=== PATIENT | male | born 1980 | race Caucasian/White ===

== ENCOUNTER 2019-03-02 21:23 | Emergency (ER) | payer OTHER, SELFPAY ==
[2019-03-02 21:30] VITALS: BP 117/79; PULSE 72; RESP 18; TEMP 36.6; O2SAT 98
--- NOTE | 2019-03-02 21:34 | DI.RAD.S_ITS ---
PROCEDURE: XR ANKLE RT MIN 3V INDICATIONS: twisted ankle TECHNIQUE: 3 views of the ankle were acquired. COMPARISON: None. FINDINGS: Bones: No fractures or dislocations. Ankle mortise is normally aligned. No suspicious bony lesions. Soft tissues: Swelling over the lateral malleolus. No tibiotalar joint effusion. Achilles tendon appears normal. IMPRESSION: No fracture or dislocation. Dictated by: Gorge Martinez M.D. on 03/03/2019 at 7:27 Approved by: Gorge Martinez M.D. on 03/03/2019 at 7:29
--- NOTE | 2019-03-02 22:02 | ED_ITS ---
HPI - Extremity Injury (Lower) General Chief Complaint: Extremity Injury, Lower Stated Complaint: RIGHT ANKLE INJURY Time Seen by Provider: 03/02/19 21:42 Source: patient Mode of arrival: ambulatory Limitations: no limitations History of Present Illness HPI Narrative: 39-year-old male nonsmoker with benign medical history presents with a friend in the chief complaint of a right ankle injury suffered prior to arrival. He was at a local [facility] [address] a an inverted his right ankle while walking on uneven ground. He complains to have worsening pain with ambulation and improvement with rest. No numbness, tingling or weakness. No knee or hip injury. He denies any significant history of ankle trouble. MD complaint: ankle injury Onset (ago): hour(s) Type of Injury: inversion Place: street/outdoors Severity: moderate Relieving factors: rest Exacerbating factors: weight bearing, movement and palpation Context: walking Associated symptoms: snap/pop sensation and swelling Other symptoms: none Treatments prior to arrival: cold therapy Related Data Allergies Allergy/AdvReac Type Severity Reaction Status Date / Time No Known Drug Allergies Allergy Verified 03/02/19 21:38 Review of Systems Constitutional Denies chills, Denies fever(s), Denies lethargy and Denies weakness Eyes Denies change in vision, Denies eye discharge, Denies irritation and Denies loss of vision ENT Ears, Nose, Mouth, and Throat: Denies change in voice, Denies neck pain and Denies sore throat Cardiovascular Denies chest pain, Denies irregular heart rhythm, Denies lightheadedness, Denies palpitations, Denies dyspnea, Denies dyspnea on exertion and Denies orthopnea Respiratory Denies cough, Denies dyspnea, Denies dyspnea on exertion and Denies wheezing Gastrointestinal Gastrointestinal: Denies abdominal pain, Denies change in bowel habits, Denies diarrhea, Denies nausea and Denies vomiting Genitourinary Denies hematuria, Denies flank pain, Denies urinary incontinence and Denies urinary urgency Musculoskeletal Reports arthralgias, Reports joint swelling, Reports limited range of motion and Denies neck pain Integumentary/Breasts Denies pruritus, Denies erythema, Denies rash and Denies wounds Neurologic Denies confusion, Denies loss of vision and Denies weakness Psychiatric Denies anxiety, Denies confusion, Denies depression, Denies homicidal ideation and Denies suicidal ideation Endocrine Denies palpitations Hematologic/Lymphatic Denies easy bruising Allergic/Immunologic Denies wheezing PFSH Social History Smoking Status: Never smoker Social History Smoking Status: Never smoker Exam Narrative Exam Narrative: GEN: AOx3 and in mild distress, rubbing his right ankle EYES: Pupils are equal, round, and reactive to light and accommodation. Extraoccular muscles are intact bilaterally. There is no subconjunctival hemorrhage or exudate. CHEST: Lungs are clear to auscultation bilaterally and free of wheezes, rales, or rhonchi. Heart rate is regular rhythm, there are no murmurs, clicks, rubs, or gallops. There is no chest wall tenderness. ABD: Abdomen is soft and nontender. There is no guarding or rebound. Bowel sounds are normal in all 4 quadrants. There is no mass or organomegaly. EXT: Full but painful range of motion of the right ankle. Swelling inferior to the lateral malleolus, no ligamentous instability. Close, isolated and neurovascularly intact. SKIN: Warm, pink, and dry. No erythema or rash Initial Vital Signs Initial Vital Signs: Vital Signs Temperature 98 F 03/02/19 21:30 Pulse Rate 72 03/02/19 21:30 Respiratory Rate 18 03/02/19 21:30 Blood Pressure 117/79 03/02/19 21:30 Pulse Oximetry 98 03/02/19 21:30 Course Orders Ordered: ED Orders 03/02/19 21:34 XR ankle RT min 3V Stat Vital Signs - 8 hr 03/02/19 21:30 Temperature 98 F Pulse Rate 72 Respiratory Rate 18 Blood Pressure 117/79 Pulse Oximetry 98 MDM - Extremity Injury (Lower) Imaging Data Ankle Xray: Attestation: I personally reviewed and interpreted this imaging study as follows: My impression: No obvious bony abnormality Discharge Plan Departure Patient Disposition: Home Clinical Impression: Ankle sprain and strain Discharge Date/Time: 03/02/19 22:08 Interventions: ED Discharge Assessment Last Done: 03/02/19 22:07 Instructions: Ankle Sprain Activity Restrictions/Additional Instructions: *You have been diagnosed with [acute right anterior talofibular strain] *What to do: *Take medications as directed: tylenol and motrin for pain and swelling *Follow up with your primary care provider in 2-3 days, call for an appointment. Let them know you were seen in the Emergency Department and that we ask that you be seen in follow up *Return to ER if you should have any new, worsening or concerning symptoms] Referrals: [facility] [Outside] Fernando Mensah MD [Physician] -
== END 2019-03-02 22:08 | disposition home or self-care (01) ==
PROVIDERS: Emergency Provider Emergency Medicine
DX: S93.401A Sprain of unspecified ligament of right ankle, initial encounter (principal); X50.9XXA Other and unspecified overexertion or strenuous movements or postures, initial encounter; Y93.01 Activity, walking, marching and hiking
CPT/HCPCS: 73610; 99282; 99283

== ENCOUNTER 2021-12-01 15:03 | Emergency (ER) | payer SELFPAY ==
[2021-12-01 15:22] VITALS: BP 139/81; PULSE 72; RESP 18; TEMP 37.1; O2SAT 98; BMI 27.7
[2021-12-01 17:45] VITALS: BP 131/76; PULSE 69; RESP 16; O2SAT 99
--- NOTE | 2021-12-01 18:41 | ED_ITS ---
HPI - Extremity Injury (Lower) <AFIA Kirby - Last Filed: 12/01/21 21:22> General Chief Complaint: Extremity Injury, Lower Stated Complaint: Right calf skateboard injury Time Seen by Provider: 12/01/21 17:38 Source: patient Mode of arrival: Family Vehicle History of Present Illness HPI Narrative: This is a 41-year-old male who presents to the emergency department with left calf pain which occurred while he was on a skateboard when he suddenly felt like he was struck in the back of the calf and felt pain and is unable to flex his left calf muscle. He states that bearing weight is almost intolerable, he cannot ambulate normally, denies any sensation changes in his foot, denies any pain to his Achilles, denies any ankle pain, knee pain, or wound. He states that he feels the pain on the medial aspect of his left posterior gastrocnemius muscle, he states that it feels swollen to touch. Related Data Previous Rx's Medication Instructions Recorded diclofenac sodium 1 % topical gel 2 g TOPICAL QID PRN #100 g 12/01/21 (Voltaren Arthritis Pain) lidocaine 5 % topical patch 1 patch TOPICAL DAILY #15 ea 12/01/21 Allergies Allergy/AdvReac Type Severity Reaction Status Date / Time No Known Drug Allergies Allergy Verified 03/02/19 21:38 Review of Systems <AFIA Kirby - Last Filed: 12/01/21 21:22> Review of Systems Narrative: General: denies fever, chills, malaise, sweats, fatigue Head/Neck: denies headache, neck pain, dizziness Eyes: denies visual changes, eye pain Cardio: denies chest pain, palpitations, edema Respiratory: denies dyspnea, cough GI: denies abdominal pain, nausea, vomiting, or diarrhea : denies dysuria, hematuria, urinary retention, frequency or incontinence MSK: denies joint pain, endorses medial gastrocnemius pain to palpation and w ithbearing weight Skin: denies rash, itching, skin lesions or other Neuro: denies numbness, tingling Patient History <AFIA Kirby - Last Filed: 12/01/21 21:22> Social History Smoking Status: Current some day smoker Smoking Status: Current some day smoker tobacco type: cigars alcohol intake frequency: a few times a week Alcohol type: beer Substance Use Type: does not use Exam <AFIA Kirby - Last Filed: 12/01/21 21:22> Narrative Exam Narrative: Independently reviewed vitals signs and nursing notes. General: cooperative, comfortable, in no acute distress, well developed and well groomed Head: atraumatic, symmetrical facial expressions Neck: supple, atraumatic, without lymphadenopathy. Eyes: pupils equal round and reactive, EOMI, conjunctiva normal Nose: nares patent, no rhinorrhea Mouth/Throat: uvula midline, moist mucus membranes Cardiovascular: regular rate and rhythm, no peripheral edema, warm extremities Respiratory: normal effort, able to speak in complete sentences, no audible wheezing, stridor, or rales. No retractions or tachypnea. GI: abdomen soft, nontender to palpation, nondistended, no masses, no exquisite tenderness with exam, without guarding or rebound. MSK: moves all extremities, neurovascularly intact, right gastrocnemius tenderness with palpation on the medial distal aspect, no tenderness over left knee LCL, MCL, full stop with Samantha test anteriorly and posteriorly, calves are equal in size bilaterally or close to, tenderness on the medial aspect to palpation. Patient is not able to flex his gastrocnemius on the left, difficulty with dorsiflexion but able to slightly dorsiflex and dorsi extension is without deficit, no tenderness over Achilles tendon Neuro: normal speech and cognition, A&O x3, normal tone Psych: mental status is grossly normal, congruent mood, normal affect, pleasant and cooperative Initial Vital Signs Initial Vital Signs: Vital Signs Temperature 98.7 F 12/01/21 15:22 Pulse Rate 72 12/01/21 15:22 Respiratory Rate 18 12/01/21 15:22 Blood Pressure 139/81 12/01/21 15:22 Pulse Oximetry 98 12/01/21 15:22 <Caesar Uriostegui DO - Last Filed: 12/01/21 21:45> Initial Vital Signs Initial Vital Signs: Vital Signs Temperature 98.7 F 12/01/21 15:22 Pulse Rate 72 12/01/21 15:22 Respiratory Rate 18 12/01/21 15:22 Blood Pressure 139/81 12/01/21 15:22 Pulse Oximetry 98 12/01/21 15:22 Course <AFIA Kirby - Last Filed: 12/01/21 21:22> Orders Ordered: Discontinued Medications Acetaminophen (Acetaminophen 325 Mg Tablet) 975 mg PO NOW ONE Stop: 12/01/21 18:43 Last Admin: 12/01/21 18:49 Dose: Not Given Documented by: ATAYLOR Ketorolac Tromethamine (Ketorolac 10 Mg Tablet) 10 mg PO NOW ONE Stop: 12/01/21 18:43 Last Admin: 12/01/21 18:49 Dose: Not Given Documented by: ATAYLOR Vital Signs Vital signs: Vital Signs - 8 hr 12/01/21 15:22 12/01/21 17:45 Temperature 98.7 F Pulse Rate 72 69 Respiratory Rate 18 16 Blood Pressure 139/81 131/76 Pulse Oximetry 98 99 <Caesar Uriostegui DO - Last Filed: 12/01/21 21:45> Orders Ordered: Discontinued Medications Acetaminophen (Acetaminophen 325 Mg Tablet) 975 mg PO NOW ONE Stop: 12/01/21 18:43 Last Admin: 12/01/21 18:49 Dose: Not Given Documented by: ATAYLOR Ketorolac Tromethamine (Ketorolac 10 Mg Tablet) 10 mg PO NOW ONE Stop: 12/01/21 18:43 Last Admin: 12/01/21 18:49 Dose: Not Given Documented by: ATAYLOR Vital Signs Vital signs: Vital Signs - 8 hr 12/01/21 15:22 12/01/21 17:45 Temperature 98.7 F Pulse Rate 72 69 Respiratory Rate 18 16 Blood Pressure 139/81 131/76 Pulse Oximetry 98 99 MDM - Extremity Injury (Lower) <AFIA Kirby - Last Filed: 12/01/21 21:22> Imaging Data Extremity x-ray #1: Radiologist's Impression: PROCEDURE:? XR ANKLE RT MIN 3V ? INDICATIONS:? twisted ankle ? TECHNIQUE:? 3 views of the ankle were acquired.? ? COMPARISON:? None. ? FINDINGS:? ? Bones:? No fractures or dislocations.? Ankle mortise is normally aligned.? No suspicious bony lesions.? ? Soft tissues:? Swelling over the lateral malleolus. No tibiotalar joint effusion.? Achilles tendon appears normal.? ? IMPRESSION: No fracture or dislocation. ? ? ? Dictated by: Gorge Martinez M.D. on 03/03/2019 at 7:27 ? ? Approved by: Gorge Martinez M.D. on 03/03/2019 at 7:29 ? ?? [facility] Narrative Medical decision making narrative: This is a 41-year-old male who presents to the emergency department with spontaneous pain in his right gastrocnemius while he was riding a skateboard earlier today and now is unable to flex his gastrocnemius or dorsiflex his foot. He has tenderness to the medial gastrocnemius and my suspicion is that he has a gastrocnemius tear. Patient was educated at length about this as he does not have a primary care provider, states he does not have a job, or any money, or any follow-up. Recommend compression sleeve/Kyrie bandage, ibuprofen, Tylenol, Voltaren. Patient denies wanting any pain medication for this. Patient was given crutches, this was helpful, he was reassured that this start to improve over the next week, it may take approximately 3 weeks before he can start walking normally, he does not have any tenderness over his Achilles tendon, but he does have difficulty with dorsiflexion, was unable to flex his gastrocnemius muscle. Patient was encouraged to try the supportive therapies including crutches, compression, ice, [id number] medications and if still having difficulty, to follow up with [facility] after [address] patient not [address] if he is unable to safely lift his foot off of gas and get it on the brake. Patient was anxious and seemingly overwhelmed, he was reassured, he called again later and we spoke about how to get through this week without being able to drive. He felt much better after he was reassured, and understands with the red flag signs are. He will return to the emergency department if he has any worsening of his symptoms. Patient is appropriate and amenable to discharge home. Vital signs are stable on repeat examination is unremarkable. Patient has been informed of results. Patient has been given strict return to ER precautions for any new or worsening symptoms. Patient understands to follow up closely with outpatient providers as instructed. Patient understands plan and agrees to discharge home. All questions and concerns answered at this time. Discharge Plan Departure Patient Disposition: Home Clinical Impression: Gastrocnemius tear Qualifiers: Encounter type: initial encounter Laterality: left Qualified Code(s): S86.112A - Strain of other muscle(s) and tendon(s) of posterior muscle group at lower leg level, left leg, initial encounter Instructions: Calf Muscle Strain Activity Restrictions/Additional Instructions: *You have been diagnosed with a gastrocneumius tear on the left. Please use crutches for 1 week with icing, compression, and see if you are able to walk at that point. If you are unable to walk at that point, please follow-up with Orthopedics, call and make an appointment for evaluation. If it is improved but still painful to walk on, continue to wean herself off of crutches. Please apply Voltaren gel up to 3 or 4 times daily as needed, this can be helpful for pain. You may use a heel lift in her shoe which might offer some relief. Stretching exercises do not aid healing and should be avoided while this is healing. It can exacerbate the muscle tear from the injury. Please take ibuprofen or Tylenol for pain, stay hydrated, this will be worst or the 1st week, it should gradually improve over the next few weeks. You are improving, then you can start doing these exercises listed below. Yaw's intensive rehabilitation of Achilles tendinopathy 1. Eccentric heel drop description a. Stand with the heel of the affected foot beyond the edge of the step or platform with the foot plantar flexed. Slowly lower the heel, bringing the foot into dorsiflexion. b. Perform the exercise both with the knee straight (gastrocnemius) and with the knee bent 45 degrees (soleus). c. Avoid concentric exercise by raising the foot back to the plantar flexed starting position using the unaffected foot, and hands if a railing is available. 2. Number of exercises a. Perform 3 sets of 15 repetitions with straight knees, then 3 sets of 15 repetitions with bent knees. b. Perform this cycle twice daily (180 drops/day). c. Continue the program 7 days per week for 12 to 24 weeks. 3. Exercise progression a. The exercises must be uncomfortable; when heel drops are no longer painful add weight by using a backpack, dumbbells, or a weight machine. *What to do: *Please continue to take your regular medications as directed. [x] New medication prescriptions sent to your pharmacy: [[facility] [ ] New medication written as a paper prescription [] No new medications given *Please follow up with your primary care provider in 2-3 days, call for an appointment. Let them know you were seen in the Emergency Department and that we asked that you be seen for follow-up. We will electronically transmit a record of today's note if your PCP is in our system *If you do not have a primary care provider please contact [phone] to establish care with one of the [facility] primary care providers. *Return to Emergency Department if you should have any new, worsening or concerning symptoms, such as [fever greater than 101F, chills, worsening pain, persistent vomiting or other bothersome symptoms] Prescriptions: New diclofenac sodium [Voltaren Arthritis Pain] 1 % gel 2 g topical QID PRN (Reason: pain) Qty: 100 0RF Rx Instructions: apply to single elbow, wrist or hand; for hand includes palm/fingers/back of hand lidocaine 5 % adhesive patch,medicated 1 patch topical DAILY Qty: 15 0RF Rx Instructions: leave on most painful area for up to 12 hrs Referrals: [facility] [Provider Group] <Caesar Uriostegui, DO - Last Filed: 12/01/21 21:45> Cosign ED Attending Cosignature Attestation: Dr Uriostegui Co-Sign Statement: I was available for consultation during this patient's emergency department visit. This chart is signed by myself for administrative purposes only. I did not have direct contact with this patient during this visit. They were seen independently by the [facility].
== END 2021-12-01 18:47 | disposition home or self-care (01) ==
PROVIDERS: Emergency Provider Nurse Practitioner Critical Care Medicine
DX: S86.812A Strain of other muscle(s) and tendon(s) at lower leg level, left leg, initial encounter (principal); X58.XXXA Exposure to other specified factors, initial encounter; Y93.51 Activity, roller skating (inline) and skateboarding
CPT/HCPCS: 99281; 99282